=== PATIENT | female | born 1955 | race Caucasian/White ===

== ENCOUNTER 2017-03-19 09:41 | Outpatient (CLI) | payer BC ==
--- NOTE | 2017-03-19 11:09 | MMO ---
BILATERAL SCREENING MAMMOGRAM: HISTORY: A 61-year-old female for screening mammography. COMPARISON: 02/12/16, 11/05/13, 09/08/12. FINDINGS: Bilateral MLO and CC views of the breasts show scattered fibroglandular breast tissue. There is a s mall benign-appearing calcification in the left breast. There is no evidence of suspicious mass, segura spicious clustered microcalcifications, or area of architectural distortion. Interpretation of this mammogram was performed with the assistance of computer-aided detection. IMPRESSION: BI-RADS category 2 - benign findings. Annual screening mammography is recommended. POS: [facility]
== END 2017-03-19 09:42 | disposition home or self-care (01) ==
LOC: SCSMAMMO 09:41
PROVIDERS: ATTEND Obstetrics & Gynecology
DX: Z12.31 Encounter for screening mammogram for malignant neoplasm of breast (principal)
CPT/HCPCS: 77067; G0202

== ENCOUNTER 2018-08-17 09:33 | Outpatient (CLI) | payer BC | END 2018-08-17 09:34 | disposition home or self-care (01) | LOC: BICMAMMO 09:33 | PROVIDERS: ATTEND Family Medicine | DX: Z12.31 Encounter for screening mammogram for malignant neoplasm of breast (principal); R92.1 Mammographic calcification found on diagnostic imaging of breast | CPT/HCPCS: 77063; 77067 ==

== ENCOUNTER 2020-04-10 13:24 | Outpatient (CLI) | payer BC ==
--- NOTE | 2020-04-10 14:02 | MMO ---
Bilateral MAMMO Bilat Screen [facility]. CLINICAL HISTORY: Patient is 65 years old and is seen for screening. The patient has no family history of breast cancer. The patient has no personal history of cancer. VIEWS: The views performed were: bilateral craniocaudal with tomosynthesis and bilateral mediolateral oblique with tomosynthesis. FILMS COMPARED: The present examination has been compared to prior imaging studies performed at [facility] on 08/17/2018, and at [facility] on 11/17/2014, 02/13/2016 and 03/19/2017. This study has been interpreted with the assistance of computer-aided detection. MAMMOGRAM FINDINGS: There are scattered fibroglandular densities. There are no suspicious masses, suspicious calcifications, or new areas of architectural distortion. IMPRESSION: THERE IS NO MAMMOGRAPHIC EVIDENCE OF MALIGNANCY. A ROUTINE FOLLOW-UP MAMMOGRAM IN 1 YEAR IS RECOMMENDED. THE RESULTS OF THIS EXAM WERE SENT TO THE PATIENT. ACR BI-RADS Category 1 - Negative MAMMOGRAPHY NOTE: 1. A negative mammogram report should not delay a biopsy if a dominant of clinically suspicious mass is present. 2. Approximately 10% to 15% of breast cancers are not detected by mammography. 3. Adenosis and dense breasts may obscure an underlying neoplasm. Reported by: ASHELY URRUTIA MD Electonically Signed: [id number]
== END 2020-04-10 13:25 | disposition home or self-care (01) ==
LOC: BICMAMMO 13:24
PROVIDERS: ATTEND Student in an Organized Health Care Education/Training Program
DX: Z12.31 Encounter for screening mammogram for malignant neoplasm of breast (principal)
CPT/HCPCS: 77063; 77067

== ENCOUNTER 2022-06-19 09:07 | Outpatient (CLI) | payer MEDICARE, BC | END 2022-06-19 09:08 | disposition home or self-care (01) | LOC: BICMAMMO 09:07 | PROVIDERS: ATTEND Family Medicine | DX: M85.89 Other specified disorders of bone density and structure, multiple sites (principal); E04.2 Nontoxic multinodular goiter | CPT/HCPCS: 76536; 77080 ==

== ENCOUNTER → 2022-07-31 | Day surgery (SDC) | payer MEDICARE, BC ==
[2022-07-29 11:45] VITALS: BMI 28.7
[~2022-07-31] MED LIST: Lidocaine 1% PF 5 ML VIAL ONE; Sodium Bicarbonate 2.5 MEQ/5 ML VIAL ONE
== END | disposition home or self-care (01) ==
LOC: ULT 12:07
PROVIDERS: ATTEND Internal Medicine
PROC: 0G9H3ZX Drainage of Right Thyroid Gland Lobe, Percutaneous Approach, Diagnostic (ICD-10-PCS; principal; 2022-07-31)
PROC: 0G9G3ZX Drainage of Left Thyroid Gland Lobe, Percutaneous Approach, Diagnostic (ICD-10-PCS; 2022-07-31)
DX: E04.2 Nontoxic multinodular goiter (principal); M85.80 Other specified disorders of bone density and structure, unspecified site; E78.2 Mixed hyperlipidemia; Z79.899 Other long term (current) drug therapy
CPT/HCPCS: 10005; 10006; 88173; 88305

== ENCOUNTER 2024-06-21 10:03 | Outpatient (CLI) | payer MEDICARE | END 2024-06-21 10:04 | disposition home or self-care (01) | LOC: BICULT 10:03 | PROVIDERS: ATTEND Internal Medicine | DX: Z12.31 Encounter for screening mammogram for malignant neoplasm of breast (principal); Z78.0 Asymptomatic menopausal state; E04.1 Nontoxic single thyroid nodule; M85.851 Other specified disorders of bone density and structure, right thigh; M85.852 Other specified disorders of bone density and structure, left thigh; M81.0 Age-related osteoporosis without current pathological fracture | CPT/HCPCS: 76536; 77063; 77067; 77080 ==

== ENCOUNTER 2025-01-31 09:10 | Outpatient (CLI) | payer MEDICARE ==
[2025-01-31 11:20] LABS: #Basophils 0.06 10x3/uL (0.0-0.2); #Eosinophils 0.18 10x3/uL (0.0-0.7); #Monocytes 0.51 10x3/uL (0.11-0.59); #Neutrophils 4.47 10x3/uL (1.40-6.50); %Basophils 0.8 % (0.0-1.0); %Eosinophils 2.3 % (0.0-10.0); %Lymphocytes 33.4 % (21.0-51.0); %Monocytes 6.5 % (0.0-10.0); %Neutrophils 56.7 % (42.0-75.0); Hematocrit 44.6 % (36.0-47.0); Hemoglobin 14.3 g/dL (12.0-16.0); Mean Corpuscular Hemoglobin 30.4 pg (27.0-31.0); Mean Corpuscular Volume 94.7 fL (78.0-98.0); Platelet Count 245 10x3/uL (130-400); Red Blood Cell (RBC) Count 4.71 mill/uL (4.20-5.40); White Blood Cell (WBC) Count 7.87 10x3/uL (4.8-10.8)
[2025-01-31 11:51] LABS: Anion Gap 16 mmol/L (10-20); BUN (Urea Nitrogen) 16 mg/dL (9.8-20.1); Calc. Creatinine Clearance 0 mL/min (70-130); Calcium 9.4 mg/dL (7.8-10.44); Carbon Dioxide 23 mmol/L (23-31); Chloride 108 mmol/L (98-107); Glucose 99 mg/dL (80-115); Potassium 4.1 mmol/L (3.5-5.1); Sodium 143 mmol/L (136-145)
== END 2025-01-31 09:11 | disposition home or self-care (01) ==
LOC: LABBT 09:10
PROVIDERS: ATTEND Orthopaedic Surgery
DX: Z01.818 Encounter for other preprocedural examination (principal); M75.111 Incomplete rotator cuff tear or rupture of right shoulder, not specified as traumatic
CPT/HCPCS: 80048; 85025; 93005; 93010

== ENCOUNTER 2025-02-04 07:07 | Day surgery (SDC) | payer MEDICARE ==
[2025-01-31 09:34] VITALS: BMI 29.7
[2025-02-04] MEDS ORDERED: Ropivacaine 0.2% HCl/PF 20 ML ONE (08:02)
[2025-02-04] MEDS ORDERED: Ropivacaine 0.5% HCl/PF (150 MG/30 ML VIAL) ONE (08:02)
[2025-02-04] MEDS ORDERED: CEFAZOLIN 2 GM VIAL ONE (08:06)
[2025-02-04] MEDS ORDERED: Lidocaine 1% (PF) 30 ML VIAL ONE (08:07)
[2025-02-04] MEDS ORDERED: Lidocaine 1% PF 5 ML VIAL ONE (08:31)
[2025-02-04] MEDS ORDERED: Ondansetron PF 4 MG/2 ML Vial ONE (08:31)
[2025-02-04] MEDS ORDERED: PROPOFOL 20 ML ONE (08:31)
[2025-02-04] MEDS ORDERED: Rocuronium Bromide 10 MG/ML (10ML VIAL) ONE (08:31)
[2025-02-04] MEDS ORDERED: Ondansetron PF 4 MG/2 ML Vial IVP PRN (09:30)
[2025-02-04] MEDS ORDERED: Ropivacaine 0.2% 550 ML 550 ML NERVE BLCK SCH (09:30)
[2025-02-04] MEDS ORDERED: SUGAMMADEX SODIUM 200 MG/2 ML VIAL ONE (11:03)
== END 2025-02-04 14:10 | disposition home or self-care (01) ==
LOC: SDC 07:07
PROVIDERS: ATTEND Orthopaedic Surgery
PROC: 0LQ14ZZ Repair Right Shoulder Tendon, Percutaneous Endoscopic Approach (ICD-10-PCS; principal; 2025-02-04)
PROC: 0LS30ZZ Reposition Right Upper Arm Tendon, Open Approach (ICD-10-PCS; 2025-02-04)
PROC: 3E0T3BZ Introduction of Anesthetic Agent into Peripheral Nerves and Plexi, Percutaneous Approach (ICD-10-PCS; 2025-02-04)
DX: S46.011A Strain of muscle(s) and tendon(s) of the rotator cuff of right shoulder, initial encounter (principal); S46.221A Laceration of muscle, fascia and tendon of other parts of biceps, right arm, initial encounter; E78.5 Hyperlipidemia, unspecified; K21.9 Gastro-esophageal reflux disease without esophagitis; Z79.899 Other long term (current) drug therapy; X50.0XXA Overexertion from strenuous movement or load, initial encounter
CPT/HCPCS: 23430; 29827; 64415; A4306; C1713 ×2; C1894; J0169; J1100; J2250; J2405; J2704; J2795 ×3; J3010